=== PATIENT | male | born 1985 | race Caucasian/White ===

== ENCOUNTER → 2016-10-03 | Outpatient (CLI) | payer OTHER ==
[~2016-10-03] MED LIST: DIAZ-345 PO
--- OUTSIDE RECORDS SUMMARY | 2016-10-03 14:12 | XMS REPORT ---
Author Author DARRYN CAROLINA [employer] Address Unknown Phone Unavailable Care Team Providers Care Government Affairs Manager Name Role Phone DARRYN CAROLINA CP Unavailable Allergies, Adverse Reactions, Alerts Substance Reaction Event Type N.K.D.A. Info Not Available Non Drug Allergy Problems Problem Type Condition Code Onset Dates Condition Status Assessment Dental examination Z01.20 Active Problem Sterilization V25.2 Active Problem Allergic rhinitis, cause unspecified 477.9 Active Problem Other general counseling and advice for contraceptive management V25.09 Active Problem Other specified disease of hair and hair follicles 704.8 Active Problem Other malaise and fatigue 780.79 Active Problem Unspecified subjective visual disturbance 368.10 Active Problem Other atopic dermatitis and related conditions 691.8 Active Medications No Known Medications Procedures Procedure Coding System Code Date INTRAORL-PERIAPICAL 1 FILM 62926 CPT-4 D0220 February 23, 2016 BITEWING - SINGLE FILM CPT-4 D0270 February 23, 2016 LTD ORAL EVALUATION - PROBLEM FOCUS CPT-4 D0140 February 23, 2016 Vital Signs Date/Time: February 23, 2016 Blood Pressure Diastolic 83 mmHg Blood Pressure Systolic 118 mmHg Results No Known Results Summary Purpose eClinicalWorks Submission
--- NOTE | 2016-10-03 18:27 | Diagnostic Imaging Report ---
EXAMINATION: Scrotal ultrasound. INDICATION: Epididymitis. COMPARISON: There are no previous studies available for comparison. TECHNIQUE: Spectral and color flow imaging of the scrotum was performed. FINDINGS: Both testicles were identified. The testicles are normal in size. The right testicle measures 4.3 x 2.0 x 3.3 cm while the left testicle is estimated to be 4.7 x 1.8 x 3.0 cm. There is no evidence for solid testicular mass and there is no sign of torsion. There is a 0.9 x 0.5 x 0.8 cm cyst arising from the head of the epididymis on the right. The right epididymis is otherwise unremarkable. There does seem to be slightly increased vascularity associated with the epididymal head on the left and I am concerned that this finding is related to mild epididymitis. Clinical followup is recommended. There is no hydrocele or varicocele formation identified. IMPRESSION: 1. There is no evidence for solid testicular mass or for torsion of either testicle. 2. The slightly hyperemic appearance of the head of the epididymis on left does suggest that there is mild epididymitis. Clinical followup is recommended. 3. There is a small benign-appearing cyst in the head of the epididymis on the right. Dictated by: Dictated on workstation # [id number]
== END ==
LOC: RAD 14:08
PROVIDERS: ATTEND Nurse Practitioner Community Health
DX: N45.1 Epididymitis (principal)
CPT/HCPCS: 76870

== ENCOUNTER 2017-01-02 12:05 | Outpatient (CLI) | payer OTHER ==
[~2017-01-02] VITALS: Ht 170.2 cm; Wt 65.9 kg
[2017-01-02 12:18] VITALS: BP 106/72
[2017-01-03] MEDS ORDERED: HYDR-3812 PO (11:58)
[2017-01-03] MEDS ORDERED: DOCU-143 PO (11:58)
== END 2017-01-02 12:45 | disposition home or self-care (01) ==
LOC: PREOP 12:05
PROVIDERS: ATTEND Surgery
DX: Z01.818 Encounter for other preprocedural examination (principal); Z11.2 Encounter for screening for other bacterial diseases; K40.90 Unilateral inguinal hernia, without obstruction or gangrene, not specified as recurrent
CPT/HCPCS: 87081

== ENCOUNTER 2017-01-03 09:18 | Day surgery (SDC) | payer OTHER ==
[~2017-01-03] VITALS: Ht 170.2 cm; Wt 65.9 kg
[2017-01-03 09:20] VITALS: BP 123/63
[2017-01-03] MEDS ORDERED: ceFAZolin 2 GM/50 ML NS 50 ML ONE (09:25)
[2017-01-03] MEDS ORDERED: MIDAZOLAM 2 MG/2 ML (VERSED) VIAL ONE ×2 (09:34→11:37)
[2017-01-03] MEDS: LACTATED RINGERS 1,000 ML IV PRN ×2 (09:43→12:31)
--- NOTE | 2017-01-03 09:55 | Progress Note-Pre Operative ---
Pre-Operative Progress Note H&P Reviewed The H&P was reviewed, patient examined and no changes noted. Date Seen by Provider: Jan 03, 2017 Time Seen by Provider: 09:52 Date H&P Reviewed: Jan 03, 2017 Time H&P Reviewed: 09:52 Pre-Operative Diagnosis: left inguinal hernia MURALI CARRILLO DO Jan 03, 2017 9:55 am
[2017-01-03] MEDS ORDERED: CATHETER FLUSH 10 ML SYR IV PRN (10:00)
[2017-01-03] MEDS ORDERED: ceFAZolin 2 GM/NS 50 ML IV ONE (10:00)
[2017-01-03] MEDS ORDERED: LIDOCAINE PF 2% 5 ML (XYLOCAINE) VIAL ONE (11:36)
[2017-01-03] MEDS ORDERED: LACTATED RINGERS 1,000 ML IV ONE (11:36)
[2017-01-03] MEDS ORDERED: fentaNYL INJECTION 100 MCG/2 ML AMP ONE ×2 (11:36→12:18)
[2017-01-03] MEDS ORDERED: ONDANSETRON 4 MG/2 ML (SDV) Z0FRAN ONE (11:36)
[2017-01-03] MEDS ORDERED: proPOfol 200 MG/20 ML (DIPRIVAN) VIAL IV ONE (11:36)
[2017-01-03] MEDS ORDERED: ROCURONIUM 50 MG/5 ML (ZEMURON) VIAL IV ONE (11:36)
[2017-01-03] MEDS ORDERED: LIDOCAINE 1% INJ 20 ML (XYLOCAINE) VIAL ONE (11:39)
[2017-01-03] MEDS ORDERED: BUPIVACAINE 0.5% 30 ML (SENSORCAINE) VIAL ONE (11:39)
[2017-01-03] MEDS ORDERED: DOCU-143 PO (11:58)
[2017-01-03] MEDS ORDERED: HYDR-3812 PO (11:58)
--- NOTE | 2017-01-03 12:04 | Discharge Inst-Simple/Standard ---
Discharge Inst-Standard Discharge Medications New, Converted or Re-Newed RX: RX on Chart Patient Instructions/Follow Up Plan of Care/Instructions/FU: Follow up with Dr. Kang in 2 weeks you can apply ice to area for 10 mins on and 15 mins off for 24-48 hours. Activity as Tolerated: No Discharge Diet: No Restrictions Other Inst to Patient Follow up Appt: Make appointment for 2 weeks. Instructions: No lifting greater than 10 pounds. No strenuous activity. May shower in 24 hours, no tub bath or soaking. Use incentive spirometer at home as directed. No Smoking Skin/Wound Care: May remove bandages. You need to leave the white strips over incision on they will fall off on their own. Symptoms to Report: Appetite Changes, Extremity Discoloration, Numbness/Tingling, Swelling Increased , Bleeding Excessive, Eyesight Changes, Pain Increased, Urine Color Change, Constipation(Persistent), Fever over 101 degree F, Pain/Pressure in chest, Urinating Difficulty, Cough Up/Vomit Blood, Heart Beat Irreg/Pounding, Pain/ Pressure in jaw, Vaginal Bleeding Increase, Cramps in feet or legs, Lightheadedness, Pain/Pressure in shoulder, Diarrhea(Persistent), Memory Changes Suddenly, Questions/Concerns, Weight gain consecutive days, Dizziness/ Fainting, Nausea/Vomiting, Shortness of Breath, Weight gain over 2 pounds If questions or concerns contact your physician Or seek help at emergency department. JOHN DONALD APRN Jan 03, 2017 12:04 pm
[2017-01-03] MEDS ORDERED: DEXAMETHASONE PF 10 MG/ML (DECADRON) VIAL ONE (12:14)
[2017-01-03] MEDS ORDERED: SEVOFLURANE (ULTANE) 15 ML INHAL SOLN ONE ×3 (12:43→13:05)
[2017-01-03] MEDS ORDERED: NEOSTIGMINE (BLOXIVERZ ) 1 MG/1ML 10 ML VIAL ONE (12:44)
[2017-01-03] MEDS ORDERED: GLYCOPYRROLATE 0.2 MG/ML (ROBINUL) 2 ML VIAL ONE (12:44)
[2017-01-03] MEDS ORDERED: KETOROLAC 30 MG/ML VIAL ONE (13:12)
[2017-01-03] MEDS ORDERED: ONDANSETRON 4 MG/2 ML (SDV) Z0FRAN IVP PRN (13:30)
[2017-01-03] MEDS ORDERED: KETOROLAC 30 MG/ML VIAL IVP ONE (13:30)
[2017-01-03] MEDS ORDERED: morphine INJ 10 MG/ML 1ML (SYR OR VIAL) IVP PRN (13:30)
--- NOTE | 2017-01-03 13:44 | Progress Note-Post Operative ---
Post-Operative Progess Note Surgeon (s)/Can Line Operator (s) Surgeon MURALI CARRILLO DO Can Line Operator: Dr. Beltre Pre-Operative Diagnosis left inguinal hernia Post-Operative Diagnosis direct left inguinal hernia Procedure & Operative Findings Date of Procedure 01/03/17 Procedure Performed/Findings left inguinal hernia repair Anesthesia Type gen Estimated Blood Loss Estimated blood loss (mL): min Specimens/Packing Specimens Removed none MURALI ACRRILLO DO Jan 03, 2017 1:44 pm
[2017-01-03] MEDS ORDERED: HYDROcodone/APAP 5 MG/325 MG (LORTAB) TAB ONE (14:02)
[2017-01-03 14:05] VITALS: BP 114/74
[2017-01-03] MEDS ORDERED: HYDROcodone/APAP 5 MG/325 MG (LORTAB) TAB PO PRN (14:10)
[2017-01-03 14:35] VITALS: BP 111/78
[2017-01-03 14:57] VITALS: BP 111/78
--- NOTE | 2017-01-03 20:08 | OPERATIVE REPORT ---
DATE OF SERVICE: 01/03/2017 PREOPERATIVE DIAGNOSIS: Left inguinal hernia. POSTOPERATIVE DIAGNOSIS: Direct left inguinal hernia. PROCEDURE: Left inguinal hernia repair. SURGEON: Murali Kang DO CUSTODIAN ATHLETIC EQUIPMENT: Dr. Beltre, assisted in retraction, dissection and closure. ANESTHESIA: General. ESTIMATED BLOOD LOSS: Minimal. COMPLICATIONS: None. INDICATIONS: The patient is a 31-year-old male who has had previous variceal repair and had developed a hernia in the left inguinal region. The patient wished to have this repaired. He understands risks and benefits of procedure and wished to proceed with procedure. Consent was signed in the chart. PROCEDURE IN DETAIL: The patient was taken to the operating suite, was prepped and draped in sterile fashion. Surgical pause was performed. Local anesthetic 0.5% Marcaine and 1% lidocaine 50:50 ratio was used to anesthetize the area. A #15 blade scalpel was used to make an incision in left inguinal region. Blunt cautery dissection was used to take down to the external oblique. The external oblique was then opened through the external ring. There was quite a bit of scar tissue present at the level of the external oblique. This was then bluntly dissected down. The cord was then dissected around bluntly. The cord structures were isolated visualized. There was no indirect defect. There was a direct defect. Therefore, the defect was then closed the transversalis fascia to the shelving edge. Once this was reduced and closed, the ProGrip mesh was cut to size and then it was secured to Diego's ligament and it was then placed around the spermatic cord and then placed under the external oblique. The wound was then irrigated with copious amounts of irrigation. The external oblique was then closed, recreating the external ring. The subcutaneous tissues were then reapproximated using 3-0 Vicryl. Skin was then closed using 4-0 Vicryl. The area was then washed and dried. Mastisol and Steri-Strips were applied. Sterile bandages were applied. The patient tolerated the procedure well without any complications and was taken to recovery room in stable condition. Job ID: [id number] DocumentID: [id number] Dictated Date: 01/03/2017 14:52:08 Raw Mill Operator Date: 01/03/2017 19:43:09 Dictated By: MURALI KANG DO
== END 2017-01-03 15:05 | disposition home or self-care (01) ==
LOC: SDC 09:18
PROVIDERS: ATTEND Surgery
DX: K40.90 Unilateral inguinal hernia, without obstruction or gangrene, not specified as recurrent (principal)
CPT/HCPCS: 94664